=== PATIENT | male | born 1950 | race Caucasian/White ===

== ENCOUNTER 2018-02-21 09:06 | Emergency (ER) | payer MEDICARE, BC ==
[~2018-02-21] VITALS: Ht 177.8 cm; Wt 90.7 kg
[~2018-02-21 09:06] MED LIST: AMBIEN; BISOPROLOL-HCT1 EAC1 PO; FLOMAX; HYDROCODON-ACE1 EAC9 PO; HYDROCODONE; LUMIGAN2.5 M1 OP; NAPROXEN500 MG PO; PREDNISONE; PREDNISONE10 MG PO; PREDNISONE20 MG PO; TAMSULOSIN HCL0.4 MG PO; VIT D PO; ZOLOFT; ZOLOFT100 MG PO; ZOLPIDEM TARTRA10 MG PO
[2018-02-21] MEDS ORDERED: ONDANSETRON HCL INJ 2 MG/ML VIAL IV STA (09:36)
[2018-02-21 09:50] LABS: BASOPHILS # (AUTO) 0.1 (0.0-0.1); BASOPHILS % 0.9 % (0.0-1.0); EOSINOPHILS # (AUTO) 0.3 (0.0-0.4); EOSINOPHILS % 2.9 % (0.0-6.0); HEMATOCRIT 45.2 % (38.2-49.6); HEMOGLOBIN 15.5 g/dL (14.0-18.0); LYMPHOCYTES # (AUTO) 2.3 (1.0-3.2); LYMPHOCYTES % 24.3 % (18.0-39.1); MEAN CORPUSCULAR HEMOGLOBIN 33.2 pg (28-32); MEAN CORPUSCULAR HGB CONC 34.3 g/dL (31-35); MEAN CORPUSCULAR VOLUME 96.8 fL (81-99); MONOCYTES # (AUTO) 0.9 (0.2-0.8); NEUTROPHILS # (AUTO) 5.6 (2.1-6.9); NEUTROPHILS % 60.4 % (38.7-80.0); PLATELET COUNT 238 x10e3/uL (140-360); RED BLOOD COUNT 4.67 x10e6/uL (4.3-5.7)
[2018-02-21 10:00] LABS: ALANINE AMINOTRANSFERASE 13 IU/L (0-55); ALBUMIN 3.8 g/dL (3.5-5.0); ALBUMIN/GLOBULIN RATIO 1.3 (0.8-2.0); ALKALINE PHOSPHATASE 72 IU/L (40-150); ANION GAP 13.8 mmol/L (8-16); BLOOD UREA NITROGEN 13 mg/dL (7-26); BUN/CREATININE RATIO 16 (6-25); CALCIUM 9.6 mg/dL (8.4-10.2); CARBON DIOXIDE 23 mmol/L (22-29); CHLORIDE 107 mmol/L (98-107); CREATININE, SERUM 0.83 mg/dL (0.72-1.25); EST GLOMERULAR FILTRATION RATE > 60 ML/MIN (60-); GLUCOSE 102 mg/dL (74-118); POTASSIUM 3.8 mmol/L (3.5-5.1); SODIUM 140 mmol/L (136-145)
[2018-02-21] MEDS ORDERED: HYDROMORPHONE 2MG/ML 2 MG/ML ML IV ONE ×2 (10:00→11:30)
--- NOTE | 2018-02-21 10:47 | Diagnostic Imaging Report ---
EXAM: CT Abdomen and Pelvis WITH contrast INDICATION: Right upper quadrant pain History: Appendectomy and cholecystectomy COMPARISON: None. TECHNIQUE: Abdomen and Pelvis was scanned utilizing a multidetector helical scanner after administration of IV contrast. Coronal and sagittal reformations were obtained. IV CONTRAST: 100 mL Isovue-370 COMPLICATIONS: None RADIATION DOSE: Total DLP:Please see technologist worksheet mGy*cm Estimated effective dose: (DLP x 0.015 x size factor) mSv CTDIvol has been reviewed. It is below the limits set by the Radiation Protocol Committee (RPC). Appropriate CT dose reduction techniques were utilized. FINDINGS: Abdomen: Lung Bases: Limited. No acute findings. Solid Organs: Renal cysts and To small to characterize hypodensities present. Splenic and hepatic granulomata noted. Solid organs otherwise unremarkable. Upper GI Tract: Partial decompression of the stomach limits evaluation. Fluid-filled loops of small bowel with no distinct obstructive changes. Vascularity: Mild aortoiliac vascular calcifications with no aneurysm. Lymph Nodes: No suspicious adenopathy. Other: None. Pelvis: Bladder: Mildly distended. Other: Transverse diameter prostate 55 mm. Calcified injection granulomata. Colon: There are a few scattered diverticula, predominantly sigmoid colon. No distinct CT evidence of diverticulitis. Bones: Degenerative endplate changes spine. IMPRESSION: 1. No definite acute finding in the abdomen or pelvis. 2. Nonspecific fluid-filled loops of small bowel which can be seen in the setting of gastroenteritis. 3. Mild enlargement prostate. Clinical and laboratory correlation recommended. 4. Calcified injection granulomata in the buttocks. 5. Diverticulosis. Signed by: Dr. Kingston Crockett MD on 02/21/2018 10:44 AM
--- NOTE | 2018-02-21 10:57 | Diagnostic Imaging Report ---
EXAM: XR CHEST 2 VIEWS DATE: 02/21/2018 9:36 AM INDICATION: Shortness of breath COMPARISON: Same day abdominal CT, 11/12/2016 radiograph FINDINGS: Lines and Tubes: None Heart and Mediastinum: No acute cardiomediastinal findings. Lungs and Pleura: No significant pleural effusion, pneumothorax, or focal consolidation. Bones and Soft Tissues: No acute findings. IMPRESSION: 1. No acute cardiopulmonary findings. Signed by: Dr. Kingston Crockett MD on 02/21/2018 10:54 AM
[2018-02-21 11:04] LABS: BILIRUBIN,URINE NEGATIVE (NEGATIVE); CLARITY,URINE CLEAR (CLEAR); COLOR,URINE YELLOW (YELLOW); KETONES,URINE NEGATIVE (NEGATIVE); LEUKOCYTE ESTERASE ,URINE NEGATIVE (NEGATIVE); NITRITE,URINE NEGATIVE (NEGATIVE); PROTEIN,URINE DIPSTICK NEGATIVE (NEGATIVE); URINE UROBILINOGEN 0.2 mg/dL (0.2 - 1)
[2018-02-21 11:06] LABS: BACTERIA,URINE RARE /HPF; EPITHELIAL CELLS,URINE RARE /LPF; RBC,URINE 0-5 /HPF (0-5); WBC,URINE (MAN) 0-5 /HPF (0-5)
[2018-02-21 11:37] VITALS: BP 134/74
[2018-02-21] MEDS ORDERED: SODIUM CHLORIDE 0.9% 50ML 0 ML ONE (17:54)
[2018-02-21] MEDS ORDERED: IOPAMIDOL 370 MG/ML 200 ML INFUS..BTL INJ ONE (17:54)
== END 2018-02-21 11:48 | disposition home or self-care (01) ==
LOC: ER 09:06
DX: R10.11 Right upper quadrant pain (principal); S39.011A Strain of muscle, fascia and tendon of abdomen, initial encounter
CPT/HCPCS: 36415; 71046; 74177; 80053; 81001; 85025; 99284; J1170; J2405; Q9967

== ENCOUNTER → 2018-08-18 | Outpatient (CLI) | payer MEDICARE, BC ==
[~2018-08-18] MED LIST changes: +IOPAMIDOL 370 MG/ML 200 ML INFUS..BTL INJ ONE; +SODIUM CHLORIDE 0.9% 50ML 50 ML ONE
[2018-08-18 08:54] LABS: BLOOD UREA NITROGEN 7 mg/dL (8-26); BUN/CREATININE RATIO 10 (6-25); CREATININE, SERUM 0.7 mg/dL (0.9-1.3); EST GLOMERULAR FILTRATION RATE > 60 ML/MIN (60-)
--- NOTE | 2018-08-18 12:54 | Diagnostic Imaging Report ---
EXAMINATION: CT of the chest, abdomen and pelvis with contrast. TECHNIQUE: Spiral CT images of the chest, abdomen and pelvis were performed from the lung apices to the lesser trochanters after the intravenous administration of 100 cc of Isovue-370. Coronal and sagittal reformatted images were obtained. Technique modification was accomplished to effectively decrease the dose to the lowest amount possible to the patient. DLP: 779.85 mGy-cm COMPARISON: CT scan of the abdomen dated 02/21/2018, plain film of the chest dated 02/21/[address] scan of the chest dated 09/05/2014. CLINICAL HISTORY: Pulmonary nodules with a vague history of right anterior abdominal wall trauma. DISCUSSION: CHEST: LINES/TUBES: None. LUNGS AND AIRWAYS: There is a spiculated right upper lobe nodule measuring 1.8 cm with minimal cavitation that is apparent on the manager discovery radiograph for this study. Comparison to the prior chest radiograph dated 02/21/2018 does not reveal this nodule. This area was also normal on the most recent prior CT. Right middle lobe nodule is semisolid with a maximal measurement of 10 mm and also appears larger (previously measured 6 mm). Cluster of nodules in the anterior aspect of the right upper lobe appears unchanged. Again identified are diffuse emphysematous changes. PLEURA: There is pleural/lung herniation where there is an adjacent right lateral rib fracture and rib separation. HEART AND MEDIASTINUM: The thyroid gland is normal. The heart and pericardium are within normal limits. Vascular calcification. There is also a granulomatous calcification in the mediastinum.5 LYMPH NODES: No significant mediastinal, hilar or axillary lymphadenopathy is seen. BONES AND SOFT TISSUES: No bony destructive lesions. Degenerative changes of the spine. Nonunited right lower lateral rib fracture. No soft tissue abnormalities. ABDOMEN/PELVIS: HEPATOBILIARY:No focal hepatic lesions. No biliary ductal dilation. The gallbladder is normal. SPLEEN: No splenomegaly. PANCREAS: No focal masses or ductal dilatation. ADRENALS: No adrenal nodules. KIDNEYS/URETERS: No hydronephrosis, stones, or solid mass lesions. PELVIC ORGANS/BLADDER: The bladder is normal. PERITONEUM/RETROPERITONEUM: No free air or fluid. There is a 2.2 cm mesenteric cyst in the left side of the abdomen appearing unchanged compared to the abdominal CT. LYMPH NODES: No intra-abdominal,retroperitoneal, pelvic or inguinal lymphadenopathy. VESSELS: The celiac trunk,superior and inferior mesenteric and bilateral renal arteries are patent. The portal, superior mesenteric and splenic veins are patent. GI TRACT: No distention or wall thickening. BONES AND SOFT TISSUES: No bony destructive lesions. Degenerative changes of the spine. No soft tissue abnormalities. IMPRESSION: 1. Spiculated right upper lobe nodule/mass appears new and suspicious. 2. Right middle lobe semisolid nodule is larger. 3. Ununited right lateral rib fracture with herniation of the lung/pleura through ribs. 4. Diffuse emphysematous changes of the lungs. 5. Stable appearance of bilateral renal cyst. 6. Stable appearance of a mesenteric cyst. Signed by: Dr. Arnulfo Lemus DO on 08/18/2018 12:51 PM
== END ==
LOC: CT 08:21
PROVIDERS: ATTEND Family Medicine
DX: R91.8 Other nonspecific abnormal finding of lung field (principal); N28.1 Cyst of kidney, acquired
CPT/HCPCS: 36415; 71260; 74160; 82565; 84520; Q9967

== ENCOUNTER → 2019-02-15 | Outpatient (CLI) | payer MEDICARE, BC ==
[2019-02-15 09:29] LABS: BLOOD UREA NITROGEN 9 mg/dL (7-26); BUN/CREATININE RATIO 11 (6-25); CREATININE, SERUM 0.85 mg/dL (0.72-1.25); EST GLOMERULAR FILTRATION RATE > 60 ML/MIN (60-)
--- NOTE | 2019-02-15 10:59 | Diagnostic Imaging Report ---
EXAM: CT Chest WITH intravenous contrast 02/15/2019 8:41 AM INDICATION: Right rib fracture, right lung nodule COMPARISON: Chest CT of 08/18/2018 TECHNIQUE: Chest was scanned utilizing a multidetector helical scanner from the lung apex through the level of the adrenal glands after administration of IV contrast. Coronal and sagittal reformations were obtained. Routine protocol was performed. IV CONTRAST: 100mL Isovue 370 RADIATION DOSE: Total DLP: 544.5 mGy*cm. Dose modulation, iterative reconstruction, and/or weight based adjustment of the mA/kV was utilized to reduce the radiation dose to as low as reasonably achievable. COMPLICATIONS: None FINDINGS: LINES/ TUBES: None. LUNGS AND AIRWAYS: The central airways are patent. Hyperinflated lungs. Bilateral upper lobe predominant centrilobular emphysema. Again seen are multiple bilateral pulmonary nodules. The right apical cavitary nodule has increased in size, now measuring 2.1 x 1.5 cm (series 3 image 21) compared to 1.8 x 1.3 cm previously. The right middle lobe nodule measures up to 12 mm and appears similar compared to 08/18/2018 accounting for differences in technique. Right lower lobe 5 mm nodule (series 3 image 53) has increased from 3 mm previously (today's measurement). The left lower lobe nodule (series 3 image 50) appears essentially unchanged at 7 mm. PLEURA: No pleural effusion or pneumothorax. HEART AND MEDIASTINUM: The thyroid gland is normal. No mediastinal, hilar or axillary lymphadenopathy. The heart is normal in size.. There is no pericardial effusion. Mild scattered atherosclerotic calcifications of the coronary arteries and aorta. This study is not tailored for evaluation of pulmonary embolism, however there are no filling defects in the pulmonary arteries to the segmental level to suggest pulmonary emboli. UPPER ABDOMEN: Limited contrast-enhanced views of the upper abdomen demonstrate scattered calcified granulomas throughout the liver and spleen and no other focal abnormality of the partially visualized liver, spleen, pancreas, adrenals, or upper most kidneys. BONES: Unchanged appearance of partially healed right ninth lateral rib fracture. No new acute osseous injury. No suspicious lytic or blastic lesions. SOFT TISSUES: Unremarkable. IMPRESSION: Interval increase in size of right apical cavitary nodule now measuring 2.1 x 1.5 cm compared to 1.8 x 1.3 cm previously. While this could represent organization of an infectious process, this lesion remains suspicious for malignancy. Short interval follow-up chest CT in 3 months or alternatively PET/CT is recommended for further evaluation. Unchanged appearance of partially healed right lateral ninth rib fracture with associated mild herniation of lung and pleura through the associated intercostal muscular defect. Bilateral upper lobe predominant centrilobular emphysema. Atherosclerotic calcifications of the aorta and coronary arteries. Signed by: Viktor Barrett MD on 02/15/2019 10:55 AM
== END ==
LOC: CT 08:34
PROVIDERS: ATTEND Family Medicine
DX: J98.4 Other disorders of lung (principal); R91.8 Other nonspecific abnormal finding of lung field; S22.31XD Fracture of one rib, right side, subsequent encounter for fracture with routine healing; I70.0 Atherosclerosis of aorta; I25.10 Atherosclerotic heart disease of native coronary artery without angina pectoris
CPT/HCPCS: 36415; 71260; 82565; 84520; Q9967

== ENCOUNTER → 2019-03-26 | Outpatient (CLI) | payer MEDICARE, BC ==
[2019-03-26 08:19] LABS: BLOOD UREA NITROGEN 11 mg/dL (7-26); BUN/CREATININE RATIO 13 (6-25); CREATININE, SERUM 0.83 mg/dL (0.72-1.25); EST GLOMERULAR FILTRATION RATE > 60 ML/MIN (60-)
--- NOTE | 2019-03-26 09:41 | Diagnostic Imaging Report ---
EXAMINATION: Head CT without and with contrast HISTORY: Dizziness, headaches, syncope in 2007, visual disturbances. COMPARISON: Head CT 10/17/2015 TECHNIQUE: Multidetector axial images were obtained without and with contrast from the foramen magnum to the vertex . The images were reconstructed using brain and bone algorithms. Thin section brain images were reformatted into coronal and sagittal planes. Image quality: Motion/streaking artifact limits the evaluation of the skull base and posterior cranial fossa. Dose modulation, iterative reconstruction, and/or weight based adjustment of the mA/kV was utilized to reduce the radiation dose to as low as reasonably achievable. Intravenous contrast: 100 mL Isovue-370 FINDINGS: Parenchyma: 1. No abnormal densities or enhancement. 2. No mass or hemorrhage. No CT evidence of acute territorial vascular insult. Extra-axial spaces:No abnormal density. No extra-axial fluid collections Brain volume: Normal for age. Ventricles: No hydrocephalus or displacement. Arteries: No density suggestive of thrombus. Dural sinuses: No abnormal density. Extra-axial spaces: No abnormal density. Foramen magnum: No mass, Chiari malformation, or basilar invagination. Sella: No obvious mass. Paranasal/mastoid sinuses: Improved previously seen opacification of the right mastoid air cells and middle ear. The left mastoids and paranasal sinuses are clear. Skull/Scalp: No lytic or blastic lesions. No fractures. IMPRESSION: No acute intracranial abnormalities. Particularly no mass, hemorrhage or acute cortical infarcts. Signed by: Dr. Lynn Trujillo M.D. on 03/26/2019 9:38 AM
== END ==
LOC: CT 07:30
PROVIDERS: ATTEND Family Medicine
DX: R42 Dizziness and giddiness (principal); R51 Headache; I62.9 Nontraumatic intracranial hemorrhage, unspecified; I70.90 Unspecified atherosclerosis
CPT/HCPCS: 36415; 70470; 82565; 84520; 93880; Q9967

== ENCOUNTER → 2019-08-03 | Outpatient (CLI) | payer MEDICARE, BC ==
[~2019-08-03] MED LIST changes: -IOPAMIDOL 370 MG/ML 200 ML INFUS..BTL INJ ONE; -SODIUM CHLORIDE 0.9% 50ML 50 ML ONE
--- NOTE | 2019-08-03 09:04 | Diagnostic Imaging Report ---
CT of the chest, without contrast. History: Lung nodules. Comparison: CT chest from 02/15/2019, 08/18/2018. Technique: Multidetector CT scanning of the chest was performed from the level of the apices to the upper abdomen without contrast. Coronal and sagittal multiplanar reformations were obtained. RADIATION DOSE: Total DLP: 523.67 mGy*cm Dose modulation, iterative reconstruction, and/or weight based adjustment of the mA/kV was utilized to reduce the radiation dose to as low as reasonably achievable. FINDINGS: The visualized structures within the base of the neck demonstrate no significant abnormalities. The thoracic aorta is normal in course and caliber with atherosclerotic calcifications within its course and branch vessels including the coronary arteries. The heart is not enlarged. There is no abnormal pericardial fluid present. Calcified mediastinal and right hilar lymph nodes noted suggestive of prior granulomatous disease. There is no abnormal axillary, mediastinal, or hilar lymph node enlargement. The trachea and proximal airways are patent. Again identified are moderate centrilobular emphysematous changes, more prominent within the upper lobes. Again identified are bilateral pulmonary nodules. There is a persistent right apical cavitary lesion. The cavitary portion of the lesion measures 2.0 x 1.8 cm (axial image 27), previously 2.0 x 1.5 cm. However, there has been interval increase in associated wall thickening and adjacent nodularity. A new adjacent spiculated nodule measures 0.9 cm (axial image 28). The index right middle lobe nodule measures up to 1.2 cm (axial image 67), previously 1.2 cm. The index right lower lobe nodule measures 5 mm (axial image 60), previously 5 mm. The index left lower lobe ovary nodule measures 0.7 cm (axial image 60), previously 0.7 cm. There is no evidence for consolidation, pneumothorax, or pleural effusion. Limited views of the upper abdomen demonstrate calcified granulomas within the liver and spleen. Remote/healed right ninth rib fracture again noted. The osseous structures otherwise demonstrate stable degenerative changes without evidence for acute fracture or destructive process. The extrathoracic soft tissues are unremarkable. IMPRESSION: 1. Interval increase in size, associated wall thickening, and adjacent nodularity of the right apical cavitary lesion as detailed above. Although an infectious process is possible, findings remain concerning for a neoplastic process and further evaluation with PET/CT is recommended. Remaining bilateral pulmonary nodules are unchanged in size/appearance. 2. Centrilobular emphysematous changes. Signed by: Dr. Farshad Ledezma MD on 08/03/2019 9:01 AM
== END ==
LOC: CT 07:49
PROVIDERS: ATTEND Internal Medicine Critical Care Medicine
DX: J18.8 Other pneumonia, unspecified organism (principal); J44.9 Chronic obstructive pulmonary disease, unspecified; A31.8 Other mycobacterial infections; J98.4 Other disorders of lung; A31.0 Pulmonary mycobacterial infection; G47.33 Obstructive sleep apnea (adult) (pediatric)
CPT/HCPCS: 71250

== ENCOUNTER → 2019-12-06 | Outpatient (CLI) | payer MEDICARE, BC ==
--- NOTE | 2019-12-06 11:03 | Diagnostic Imaging Report ---
EXAM: CT Chest WITHOUT intravenous contrast 12/06/2019 8:00 AM INDICATION: Pulmonary nodules COMPARISON: Multiple prior chest CTs most recently 08/03/2019 TECHNIQUE: Chest was scanned utilizing a multidetector helical scanner from the lung apex through the level of the adrenal glands without administration of IV contrast. Coronal and sagittal reformations were obtained. Routine protocol was performed. IV CONTRAST: None RADIATION DOSE: Total DLP: 492 mGy*cm. Dose modulation, iterative reconstruction, and/or weight based adjustment of the mA/kV was utilized to reduce the radiation dose to as low as reasonably achievable. COMPLICATIONS: None FINDINGS: LINES/ TUBES: None. LUNGS AND AIRWAYS: The central airways are patent. Hyperinflated lungs. Bilateral centrilobular emphysema. Again seen are multiple bilateral pulmonary nodules. The right apical cavitary nodule is essentially unchanged from the most recent prior study of 08/03/2019, now measuring 1.9 x 1.8 cm (series 3 image 22). Right middle lobe nodule measures up to 10 mm and appears unchanged. Other smaller nodules appear essentially unchanged, for example the left lower lobe nodule (series 3 image 53). PLEURA: No pleural effusion or pneumothorax. HEART AND MEDIASTINUM: Unchanged subcentimeter left thyroid nodule, likely clinically insignificant. Unchanged calcified mediastinal and right hilar lymph nodes. The heart is normal in size.. There is no pericardial effusion. Mild scattered atherosclerotic calcifications of the coronary arteries and aorta. UPPER ABDOMEN: Limited contrast-enhanced views of the upper abdomen demonstrate scattered calcified granulomas throughout the liver and spleen and no other focal abnormality of the partially visualized liver, spleen, pancreas, adrenals, or upper most kidneys. BONES: Unchanged appearance of old right ninth lateral rib fracture. No new acute osseous injury. No suspicious lytic or blastic lesions. SOFT TISSUES: Unremarkable. IMPRESSION: No significant interval change of bilateral pulmonary nodules, most notably the cavitary nodule at the right lung apex. Follow-up chest CT in 6 months is recommended. Bilateral centrilobular emphysema. Signed by: Viktor Barrett MD on 12/06/2019 10:59 AM
== END ==
LOC: CT 07:39
PROVIDERS: ATTEND Internal Medicine Critical Care Medicine
DX: J18.8 Other pneumonia, unspecified organism (principal); A31.0 Pulmonary mycobacterial infection; A31.8 Other mycobacterial infections; J98.4 Other disorders of lung; J44.9 Chronic obstructive pulmonary disease, unspecified; G47.33 Obstructive sleep apnea (adult) (pediatric); M06.9 Rheumatoid arthritis, unspecified
CPT/HCPCS: 71250

== ENCOUNTER → 2020-05-10 | Outpatient (CLI) | payer MEDICARE, BC | LOC: CT 10:30 | PROVIDERS: ATTEND Internal Medicine Critical Care Medicine | DX: A31.0 Pulmonary mycobacterial infection (principal); A31.8 Other mycobacterial infections; J44.9 Chronic obstructive pulmonary disease, unspecified; J98.4 Other disorders of lung; G47.33 Obstructive sleep apnea (adult) (pediatric); M06.9 Rheumatoid arthritis, unspecified | CPT/HCPCS: 71250 ==

== ENCOUNTER 2020-07-23 11:34 | Emergency (ER) | payer MEDICARE, BC ==
[~2020-07-23] VITALS: Ht 177.8 cm; Wt 90.7 kg
[2020-07-23] MEDS ORDERED: SODIUM CHLORIDE 0.9% 1000ML 1,000 ML IV STA (12:10)
[2020-07-23] MEDS ORDERED: ONDANSETRON HCL INJ 2MG/ML 2ML 2 MG/ML VIAL IV STA (12:10)
[2020-07-23] MEDS ORDERED: METHYLPREDNISOLONE SOD SUCC 125 MG/2ML VIAL IV STA (12:10)
[2020-07-23] MEDS ORDERED: HYDROCODONE/APAP 7.5MG-325MG 1 EA TAB PO ONE (12:15)
[2020-07-23 12:34] LABS: BASOPHILS # (AUTO) 0.1 (0.0-0.1); BASOPHILS % 0.5 % (0.0-1.0); EOSINOPHILS # (AUTO) 0.2 (0.0-0.4); HEMATOCRIT 41.7 % (38.2-49.6); LYMPHOCYTES # (AUTO) 1.6 (1.0-3.2); LYMPHOCYTES % 16.8 % (18.0-39.1); MEAN CORPUSCULAR HEMOGLOBIN 33.4 pg (28-32); MEAN CORPUSCULAR HGB CONC 33.6 g/dL (31-35); MEAN CORPUSCULAR VOLUME 99.5 fL (81-99); MONOCYTES # (AUTO) 1.2 (0.2-0.8); MONOCYTES % 12.5 % (4.4-11.3); NEUTROPHILS # (AUTO) 6.3 (2.1-6.9); NEUTROPHILS % 67.8 % (38.7-80.0); PLATELET COUNT 290 x10e3/uL (140-360); RED BLOOD COUNT 4.19 x10e6/uL (4.3-5.7); RED CELL DISTRIBUTION WIDTH 13.2 % (11.7-14.4)
[2020-07-23 12:50] LABS: ALANINE AMINOTRANSFERASE 18 IU/L (0-55); ALBUMIN 3.5 g/dL (3.5-5.0); ALKALINE PHOSPHATASE 145 IU/L (40-150); ANION GAP 13.6 mmol/L (8-16); BLOOD UREA NITROGEN 10 mg/dL (7-26); BUN/CREATININE RATIO 14 (6-25); CALCIUM 9.3 mg/dL (8.4-10.2); CARBON DIOXIDE 26 mmol/L (22-29); CHLORIDE 104 mmol/L (98-107); CREATINE KINASE 39 IU/L (30-200); CREATININE, SERUM 0.71 mg/dL (0.72-1.25); EST GLOMERULAR FILTRATION RATE > 60 ML/MIN (60-); GLUCOSE 104 mg/dL (74-118); MAGNESIUM 2.1 MG/DL (1.3-2.1); POTASSIUM 3.6 mmol/L (3.5-5.1); SODIUM 140 mmol/L (136-145)
[2020-07-23 12:56] LABS: INR 0.88; PARTIAL THROMBOPLASTIN TIME 33.9 seconds (23.8-35.5); PROTHROMBIN TIME 12.4 seconds (11.9-14.5)
== END 2020-07-23 15:04 | disposition home or self-care (01) ==
LOC: ER 11:43
DX: A31.0 Pulmonary mycobacterial infection (principal); R07.81 Pleurodynia; J98.4 Other disorders of lung; M54.5 Low back pain; R59.1 Generalized enlarged lymph nodes; R94.31 Abnormal electrocardiogram [ECG] [EKG]; J44.9 Chronic obstructive pulmonary disease, unspecified; F32.9 Major depressive disorder, single episode, unspecified; M06.9 Rheumatoid arthritis, unspecified; F17.210 Nicotine dependence, cigarettes, uncomplicated; Z11.52 Encounter for screening for COVID-19
CPT/HCPCS: 36415; 71250; 80053; 82550; 82553; 83735; 84484; 85025; 85610; 85730; 87040; 93005; 99284; J2405; J2930; J7030; U0002

== ENCOUNTER → 2020-08-01 | Outpatient (CLI) | payer MEDICARE, BC | LOC: NM 13:07 | PROVIDERS: ATTEND Internal Medicine Critical Care Medicine | DX: J18.8 Other pneumonia, unspecified organism (principal); J44.9 Chronic obstructive pulmonary disease, unspecified; A31.8 Other mycobacterial infections; J98.4 Other disorders of lung; A31.0 Pulmonary mycobacterial infection; G47.33 Obstructive sleep apnea (adult) (pediatric); M06.9 Rheumatoid arthritis, unspecified | CPT/HCPCS: 78597; A9540 ==

== ENCOUNTER → 2020-08-04 | Outpatient (CLI) | payer MEDICARE, BC | LOC: RESP 09:44 | PROVIDERS: ATTEND Internal Medicine Critical Care Medicine | DX: J18.8 Other pneumonia, unspecified organism (principal); A31.0 Pulmonary mycobacterial infection; A31.8 Other mycobacterial infections; J44.9 Chronic obstructive pulmonary disease, unspecified; J98.4 Other disorders of lung; G47.33 Obstructive sleep apnea (adult) (pediatric); M06.9 Rheumatoid arthritis, unspecified | CPT/HCPCS: 94060; 94664; 94727; 94729 ==

== ENCOUNTER 2020-08-20 11:25 | Emergency (ER) | payer MEDICARE, BC ==
[~2020-08-20] VITALS: Ht 177.8 cm; Wt 90.7 kg
[2020-08-20] MEDS ORDERED: KETOROLAC TROMETHAMINE 60 MG/2 ML VIAL IM ONE (12:30)
[2020-08-20] MEDS ORDERED: HYDROMORPHONE 1MG/1ML INJ IM ONE (12:30)
[2020-08-20] MEDS ORDERED: HYDROCODON-ACE1 EAC9 PO (13:34)
== END 2020-08-20 13:55 | disposition home or self-care (01) ==
LOC: ER 11:54
DX: M25.552 Pain in left hip (principal); R06.02 Shortness of breath; R91.8 Other nonspecific abnormal finding of lung field; J44.9 Chronic obstructive pulmonary disease, unspecified; M47.816 Spondylosis without myelopathy or radiculopathy, lumbar region; F32.9 Major depressive disorder, single episode, unspecified; F17.210 Nicotine dependence, cigarettes, uncomplicated
CPT/HCPCS: 72110; 73502; 73552; 99283; J1170; J1885